=== PATIENT | female | born 1995 | race Caucasian/White ===

== ENCOUNTER 2017-05-04 08:20 | Emergency (ER) | payer BC ==
[~2017-05-04] VITALS: Ht 160 cm; Wt 74.5 kg
[2017-05-04 08:23] VITALS: TEMP 36.5; Ht 160 cm; Wt 74.5 kg
--- NOTE | 2017-05-04 08:46 | EMERGENCY ROOM VISIT NOTE ---
History First contact with patient: 08:26 Chief Complaint: FOREIGNBODY ANY BODY PART Stated Complaint: TAMPON STUCK History of Present Illness The patient is a 21 year old female who presents to the Emergency Room with complaints of a retained tampon. The patient reports that she inserted a tampon yesterday morning, and was unable to retrieve it this morning. She denies any discomfort or malodor. Review of Systems 10 system review was performed and was negative except for pertinent positives and negatives as indicated in history of present illness Past Medical/Surgical History Medical Problems: (1) No significant past medical history Surgical Problems: (1) No history of previous surgery Family History FH: cancer Social History Smoking Status: Never Smoker Alcohol Use: occasionally Marital Status: single Occupation Status: employed Physical Exam Vital Signs Date Time Temp Pulse Resp B/P (MAP) Pulse Ox O2 Delivery O2 Flow Rate FiO2 05/04/17 08:23 36.5 76 18 123/82 95 Room Air Physical Exam CONSTITUTIONAL: Healthy and well nourished. Alert and oriented X 3 with positive affect. HEENT: Normocephalic, atraumatic. Pupils equal, round and reactive. NECK: Full active range of motion without discomfort. GASTROINTESTINAL: Bowel sounds present in all quadrants. Soft and nontender to palpation. GENITOURINARY: With a female nurse scaler present, speculum exam does not show any retained tampon. The vaginal vault/cuff was completely and peripherally swept using a trauma swab. The patient has mild minimal bleeding from the cervical os, consistent with recent menses. No malodor or purulent drainage noted. MUSCULOSKELETAL: Full range of motion of all joints without discomfort. INTEGUMENTARY: No rash or other significant dermatologic conditions noted. NEUROLOGIC: No focal neurologic deficits noted. Medical Decision & Procedures ED Course Patient history and physical exam were performed. Nurse's notes were reviewed. Vital signs were reviewed and were normal. Speculum exam did not show any retained tampon. The patient reports that her life has been hectic since yesterday, and does not recall removing it last evening. The patient was instructed to return to the emergency department for any developing pain or malodor. The patient voiced understanding of all discharge instructions, and denied any pain at the time of discharge. Medical Decision Blood Pressure Screening Patient's blood pressure: Normal blood pressure Impression Primary Impression: evaluation for retained tampon Departure Information Dispostion Home / Self-Care Forms HOME CARE DOCUMENTATION FORM, IMPORTANT VISIT INFORMATION Patient Instructions My [facility] Additional Instructions No tampon was visualized on your pelvic exam. Return to the emergency department for any developing pain or foul odor.
[2017-05-04] MEDS ORDERED: BCPILLS PO (08:47)
[2017-05-04 08:55] VITALS: BP 123/82; PULSE 76; O2SAT 95
== END 2017-05-04 08:57 | disposition home or self-care (01) ==
LOC: C.EDB 08:23
DX: T19.2XXA Foreign body in vulva and vagina, initial encounter (principal); X58.XXXA Exposure to other specified factors, initial encounter